=== PATIENT | female | born 1935 | race Hispanic/Latino ===

== ENCOUNTER 2018-01-07 06:29 | Inpatient (IN) | payer OTHER ==
[~2018-01-07] VITALS: Ht 162.6 cm; Wt 49.9 kg
[2018-01-07] VITALS (21 sets, daily range): BP systolic 109–148; BP diastolic 40–77
[2018-01-07 07:00] LABS: BASOPHILS % (AUTO) 0.5 % (0.0-5.0); EOSINOPHILS % (AUTO) 1.1 % (0.0-8.0); HEMATOCRIT 35.4 % (36-48); LYMPHOCYTES % (AUTO) 6.6 % (21.0-51.0); MEAN CORPUSCULAR HEMOGLOBIN 30.1 pg (27.0-33.0); MEAN CORPUSCULAR HGB CONC 33.9 g/dL (32.0-36.0); MEAN CORPUSCULAR VOLUME 88.6 fL (79-99); MONOCYTES % (AUTO) 7.3 % (3.0-13.0); NEUTROPHILS % (AUTO) 84.5 % (40.0-77.0); PLATELET COUNT (AUTO) 176 K/uL (130-400); RED CELL DISTRIBUTION WIDTH 15.1 % (11.0-15.5); WHITE BLOOD COUNT (AUTO) 12.1 K/uL (4.8-10.8)
[2018-01-07] MEDS ORDERED: ONDANSETRON HCL 4 MG/2 ML VIAL ONE (07:08)
[2018-01-07 07:15] LABS: INR 1.16 (0.85-1.15); PARTIAL THROMBOPLASTIN TIME 26.6 SEC (26.3-35.5); PROTHROMBIN TIME 12.1 SEC (9.6-11.6)
[2018-01-07 07:22] LABS: APPEARANCE,URINE CLEAR (CLEAR); BILIRUBIN,URINE LARGE (NEGATIVE); COLOR,URINE YELLOW (YELLOW); GLUCOSE, URINE (UA) NEGATIVE (NEGATIVE); KETONES,URINE NEGATIVE (NEGATIVE); LEUKOCYTE ESTERASE ,URINE NEGATIVE (NEGATIVE); NITRATE,URINE NEGATIVE (NEGATIVE); OCCULT BLOOD,URINE NEGATIVE (NEGATIVE); PH,URINE 5.5 (5.0-8.0); PROTEIN,URINE TRACE (NEGATIVE)
[2018-01-07 07:28] LABS: POTASSIUM 3.6 mmol/L (3.5-5.1)
[2018-01-07 07:29] LABS: ALBUMIN 2.7 g/dL (3.5-5.0); BILIRUBIN,TOTAL 12.3 mg/dL (0.2-1.0); TOTAL PROTEIN, SERUM 6.4 g/dL (6.0-8.3)
[2018-01-07 07:35] LABS: B-TYPE NATRIURETIC PEPTIDE 125 pg/mL (0-100)
[2018-01-07 07:38] LABS: BACTERIA,URINE Rare /HPF (None Seen); RBC,URINE 0-1 /HPF (0-1); SQUAMOUS EPITHELIAL CELL,UR Few /HPF (0-2)
[2018-01-07] MEDS ORDERED: SODIUM CHLORIDE 0.9% 500ML 500 ML IV ONE (07:42)
[2018-01-07] MEDS ORDERED: IOHEXOL-350 75 ML VIAL IV ONE (07:45)
[2018-01-07] MEDS ORDERED: ZOSYN 3.375GM+NS 50ML 50 ML IV ONE (08:32)
[2018-01-07] MEDS ORDERED: SODIUM CHLORIDE 0.9% 100 ML IV ONE (08:33)
[2018-01-07] MEDS: SODIUM CHLORIDE 0.9% 1000ML 1,000 ML IV SCH ×2 (08:36→21:21)
[2018-01-07] MEDS ORDERED: MORPHINE SULFATE 2 MG/ML 1ML SYG IV PRN (08:45)
[2018-01-07] MEDS ORDERED: LEVOFLOXACIN 500 MG/D5W 100 ML 100 ML IV SCH (08:45)
[2018-01-07] MEDS ORDERED: METRONIDAZOLE 500MG/100ML BAG 100 ML IV SCH (08:45)
[2018-01-07] MEDS: ENOXAPARIN SODIUM 30 MG/0.3 ML SQ SCH (09:00)
[2018-01-07] MEDS ORDERED: PANTOPRAZOLE 40 MG/VIAL IVP SCH (09:00)
[2018-01-07 09:02] LABS: BILIRUBIN,DIRECT 10.2 mg/dL (0.0-0.3)
[2018-01-07] MEDS ORDERED: PROPOFOL 10 MG/ML 20ML VIAL IV ONE (11:57)
[2018-01-07] MEDS ORDERED: SUCCINYLCHOLINE CHLORIDE 20 MG/ML 10 ML VIAL ONE (12:00)
[2018-01-07] MEDS ORDERED: IOHEXOL-350 50ML VIAL IV ONE (12:18)
[2018-01-07] MEDS: INDOMETHACIN 50 MG SUPP.RECT RC SCH ×5 (13:10→15:59)
[2018-01-07] MEDS: ZOSYN 3.375GM+NS 50ML 50 ML IV SCH (21:18)
[2018-01-08] VITALS: BP 131/51
[2018-01-08 04:00] VITALS: BP 121/43
[2018-01-08] MEDS: SODIUM CHLORIDE 0.9% 1000ML 1,000 ML IV SCH ×2 (04:08→14:36)
[2018-01-08] MEDS: ZOSYN 3.375GM+NS 50ML 50 ML IV SCH ×3 (04:17→21:30)
[2018-01-08 05:46] LABS: BASOPHILS % (AUTO) 0.8 % (0.0-5.0); EOSINOPHILS % (AUTO) 3.1 % (0.0-8.0); HEMATOCRIT 29.6 % (36-48); LYMPHOCYTES % (AUTO) 9.2 % (21.0-51.0); MEAN CORPUSCULAR HEMOGLOBIN 31.2 pg (27.0-33.0); MEAN CORPUSCULAR HGB CONC 35.2 g/dL (32.0-36.0); MEAN CORPUSCULAR VOLUME 88.6 fL (79-99); MONOCYTES % (AUTO) 5.5 % (3.0-13.0); NEUTROPHILS % (AUTO) 81.4 % (40.0-77.0); PLATELET COUNT (AUTO) 138 K/uL (130-400); RED BLOOD CELL COUNT(AUTO) 3.34 MIL/uL (4.00-5.50); RED CELL DISTRIBUTION WIDTH 15.1 % (11.0-15.5)
[2018-01-08 06:29] LABS: ALBUMIN 2.1 g/dL (3.5-5.0); BILIRUBIN,TOTAL 10.2 mg/dL (0.2-1.0); CREATININE 1.1 mg/dL (0.5-1.5); POTASSIUM 3.9 mmol/L (3.5-5.1); TOTAL PROTEIN, SERUM 5.4 g/dL (6.0-8.3)
[2018-01-08 08:00] VITALS: BP 125/52
[2018-01-08] MEDS: ENOXAPARIN SODIUM 30 MG/0.3 ML SQ SCH (09:00)
[2018-01-08] MEDS: FAMOTIDINE/PF 20 MG/2 ML VIAL IV SCH (10:16)
[2018-01-08 11:00] VITALS: BP 123/68
[2018-01-08 16:00] VITALS: BP 119/56
[2018-01-08 20:00] VITALS: BP 131/49
[2018-01-09] VITALS: BP 123/47
[2018-01-09] MEDS: SODIUM CHLORIDE 0.9% 1000ML 1,000 ML IV SCH (03:38)
[2018-01-09 04:00] VITALS: BP 148/51
[2018-01-09] MEDS: ZOSYN 3.375GM+NS 50ML 50 ML IV SCH (04:26)
[2018-01-09 04:32] VITALS: BP 150/77
[2018-01-09 05:00] LABS: HEMATOCRIT 28.7 % (36-48); MEAN CORPUSCULAR HEMOGLOBIN 30.6 pg (27.0-33.0); MEAN CORPUSCULAR HGB CONC 34.8 g/dL (32.0-36.0); MEAN CORPUSCULAR VOLUME 87.8 fL (79-99); PLATELET COUNT (AUTO) 205 K/uL (130-400); RED BLOOD CELL COUNT(AUTO) 3.27 MIL/uL (4.00-5.50); RED CELL DISTRIBUTION WIDTH 15.2 % (11.0-15.5)
[2018-01-09 05:33] LABS: ALBUMIN 2.2 g/dL (3.5-5.0); BILIRUBIN,DIRECT 4.9 mg/dL (0.0-0.3); BILIRUBIN,TOTAL 5.7 mg/dL (0.2-1.0); CREATININE 1.1 mg/dL (0.5-1.5); POTASSIUM 3.3 mmol/L (3.5-5.1); TOTAL PROTEIN, SERUM 5.4 g/dL (6.0-8.3)
[2018-01-09 07:30] VITALS: BP 119/43
[2018-01-09] MEDS: FAMOTIDINE/PF 20 MG/2 ML VIAL IV SCH (08:48)
[2018-01-09] MEDS: ENOXAPARIN SODIUM 30 MG/0.3 ML SQ SCH (08:53)
[2018-01-09 11:00] VITALS: BP 112/36
[2018-01-09] MEDS ORDERED: POTASSIUM CHLORIDE 20 MEQ ERTAB PO ONE (13:00)
== END 2018-01-09 13:15 | disposition home or self-care (01) | DRG 444 ==
LOC: EDH 06:29 → EDHIP 08:36 → 3DH 09:55
PROVIDERS: ADMIT Hospitalist; ATTEND Hospitalist
PROC: 0FC98ZZ Extirpation of Matter from Common Bile Duct, Via Natural or Artificial Opening Endoscopic (ICD-10-PCS; principal; 2018-01-07)
PROC: 0F798DZ Dilation of Common Bile Duct with Intraluminal Device, Via Natural or Artificial Opening Endoscopic (ICD-10-PCS; 2018-01-07)
PROC: 3E0234Z Introduction of Serum, Toxoid and Vaccine into Muscle, Percutaneous Approach (ICD-10-PCS; 2018-01-07)
DX: K80.70 Calculus of gallbladder and bile duct without cholecystitis without obstruction (principal); E43 Unspecified severe protein-calorie malnutrition; I81 Portal vein thrombosis; Z68.1 Body mass index [BMI] 19.9 or less, adult; N28.1 Cyst of kidney, acquired; E78.5 Hyperlipidemia, unspecified; F03.90 Unspecified dementia, unspecified severity, without behavioral disturbance, psychotic disturbance, mood disturbance, and anxiety; H91.90 Unspecified hearing loss, unspecified ear; N18.3 Chronic kidney disease, stage 3 (moderate); I12.9 Hypertensive chronic kidney disease with stage 1 through stage 4 chronic kidney disease, or unspecified chronic kidney disease; Z23 Encounter for immunization; Z83.3 Family history of diabetes mellitus; Z82.49 Family history of ischemic heart disease and other diseases of the circulatory system
CPT/HCPCS: 36415; 71045; 74330; 76700; 80048; 80053; 80076; 81001; 82105; 82140; 82248; 82270; 82550; 82977; 83880; 84484; 85025; 85027; 85610; 85730; 93005; 93306; C1769; C1773; C9113; G0008; J0330; J1650; J2405; J2543; J2704; J3490; J7030; J7040; Q2038; Q9967

== ENCOUNTER 2018-02-02 05:30 | Day surgery (SDC) | payer OTHER ==
[~2018-02-02] VITALS: Ht 162.6 cm; Wt 51.6 kg
[2018-02-02] VITALS (13 sets, daily range): BP systolic 145–171; BP diastolic 48–82
[2018-02-02] MEDS ORDERED: IOHEXOL-350 50ML VIAL IV ONE (06:01)
[2018-02-02] MEDS ORDERED: SODIUM CHLORIDE 0.9% 1000ML 1,000 ML IV ONE (06:16)
[2018-02-02] MEDS ORDERED: MEMA10TA20 PO (06:26)
[2018-02-02] MEDS ORDERED: LISI10TA7 PO (06:26)
[2018-02-02] MEDS ORDERED: ATOR10TA69 PO (06:26)
[2018-02-02] MEDS ORDERED: DONE10TA43 PO (06:26)
[2018-02-02] MEDS ORDERED: SERT50TA12 PO (06:26)
[2018-02-02] MEDS ORDERED: SUCCINYLCHOLINE CHLORIDE 20 MG/ML 10 ML VIAL ONE (06:27)
[2018-02-02] MEDS ORDERED: LIDOCAINE HCL 2% 20ML ONE (06:27)
[2018-02-02] MEDS ORDERED: PROPOFOL 10 MG/ML 20ML VIAL IV ONE (06:27)
[2018-02-02] MEDS ORDERED: INDOMETHACIN 50 MG SUPP.RECT RC SCH (07:45)
== END 2018-02-02 18:50 | disposition home or self-care (01) ==
LOC: ENDO 05:30 → DAH 05:30 → ENDO 18:50
PROVIDERS: ATTEND Internal Medicine
DX: Z46.59 Encounter for fitting and adjustment of other gastrointestinal appliance and device (principal); K80.50 Calculus of bile duct without cholangitis or cholecystitis without obstruction; I10 Essential (primary) hypertension; E78.5 Hyperlipidemia, unspecified; Z79.899 Other long term (current) drug therapy; G30.9 Alzheimer's disease, unspecified; F02.80 Dementia in other diseases classified elsewhere, unspecified severity, without behavioral disturbance, psychotic disturbance, mood disturbance, and anxiety
CPT/HCPCS: 43264; 43276; 74330; C1769; C1773; J0330; J2704; J3490; J7030; Q9967; 43274; 43275

== ENCOUNTER 2018-03-24 05:53 | Day surgery (SDC) | payer OTHER ==
[~2018-03-24] VITALS: Ht 162.6 cm; Wt 53.2 kg
[2018-03-24] VITALS (14 sets, daily range): BP systolic 115–162; BP diastolic 36–66
[~2018-03-24 05:53] MED LIST: ATOR10TA69 PO; DONE10TA43 PO; LISI10TA7 PO; MEMA10TA20 PO; SERT50TA12 PO; SODIUM CHLORIDE 0.9% 1000ML 1,000 ML IV ONE
[2018-03-24] MEDS ORDERED: IOHEXOL-350 50ML VIAL IV ONE (06:19)
[2018-03-24] MEDS ORDERED: PHENYLEPHRINE HCL 10 MG/ML 1ML VIAL IV ONE (06:50)
[2018-03-24] MEDS ORDERED: GLUCAGON 1MG KIT 1 MG ML ONE (06:59)
[2018-03-24] MEDS ORDERED: INDOMETHACIN 50 MG SUPP.RECT RC SCH (07:00)
[2018-03-24] MEDS ORDERED: PROPOFOL 10 MG/ML 20ML VIAL IV ONE (07:15)
[2018-03-24] MEDS ORDERED: PROPOFOL 1000 MG/100 ML 0 ML IV ONE (07:45)
[2018-03-24] MEDS ORDERED: SUCCINYLCHOLINE CHLORIDE 20 MG/ML 10 ML VIAL ONE (07:45)
[2018-03-24] MEDS ORDERED: LIDOCAINE HCL-MPF 2% 5ML VIAL ONE (07:45)
[2018-03-24] MEDS ORDERED: PROPOFOL 1000 MG/100 ML 100 ML IV ONE (07:47)
[2018-03-24] MEDS ORDERED: LEVOFLOXACIN 500 MG/D5W 100 ML 100 ML ONE (07:48)
== END 2018-03-24 09:20 | disposition home or self-care (01) ==
LOC: ENDO 05:53 → DAH 05:53 → ENDO 09:20
PROVIDERS: ATTEND Internal Medicine
DX: K80.50 Calculus of bile duct without cholangitis or cholecystitis without obstruction (principal); I10 Essential (primary) hypertension; E78.5 Hyperlipidemia, unspecified; Z79.899 Other long term (current) drug therapy; G30.9 Alzheimer's disease, unspecified; F02.80 Dementia in other diseases classified elsewhere, unspecified severity, without behavioral disturbance, psychotic disturbance, mood disturbance, and anxiety
CPT/HCPCS: 43265; 43273; 43275; 74330; 93005; C1769; C1773; J0330; J1610; J1956; J2370; J2704 ×2; J3490; J7030; Q9967; 43264; G9654

== ENCOUNTER 2019-10-07 09:59 | Inpatient (IN) | payer OTHER ==
[~2019-10-07] VITALS: Ht 160 cm; Wt 53.9 kg
[~2019-10-07 09:59] MED LIST changes: -MEMA10TA20 PO; +MEMA10TA55 PO; -SODIUM CHLORIDE 0.9% 1000ML 1,000 ML IV ONE
[2019-10-07 10:50] LABS: BASOPHILS % (AUTO) 0.1 % (0.0-5.0); EOSINOPHILS % (AUTO) 0.1 % (0.0-8.0); HEMATOCRIT 40.8 % (36-48); LYMPHOCYTES % (AUTO) 5.3 % (21.0-51.0); MEAN CORPUSCULAR HEMOGLOBIN 30.1 pg (27.0-33.0); MEAN CORPUSCULAR HGB CONC 34.3 g/dL (32.0-36.0); MEAN CORPUSCULAR VOLUME 87.7 fL (79-99); MONOCYTES % (AUTO) 4.2 % (3.0-13.0); NEUTROPHILS % (AUTO) 89.9 % (40.0-77.0); PLATELET COUNT (AUTO) 207 K/uL (130-400); RED BLOOD CELL COUNT(AUTO) 4.65 MIL/uL (4.00-5.50); RED CELL DISTRIBUTION WIDTH 12.9 % (11.0-15.5); WHITE BLOOD COUNT (AUTO) 13.7 K/uL (4.8-10.8)
[2019-10-07 11:14] LABS: CREATININE 0.9 mg/dL (0.5-1.5)
[2019-10-07 11:18] LABS: ALBUMIN 3.7 g/dL (3.5-5.0); BILIRUBIN,TOTAL 1.1 mg/dL (0.2-1.0); TOTAL PROTEIN, SERUM 7.1 g/dL (6.0-8.3)
[2019-10-07 11:22] LABS: POTASSIUM 2.9 mmol/L (3.5-5.1)
[2019-10-07 14:06] LABS: APPEARANCE,URINE Cloudy (CLEAR); BILIRUBIN,URINE Negative (NEGATIVE); COLOR,URINE Yellow (YELLOW); GLUCOSE, URINE (UA) Negative (NEGATIVE); KETONES,URINE 40 mg/dL (NEGATIVE); LEUKOCYTE ESTERASE ,URINE Moderate (NEGATIVE); NITRATE,URINE Negative (NEGATIVE); OCCULT BLOOD,URINE Negative (NEGATIVE); PH,URINE 5.5 (5.0-8.0); PROTEIN,URINE POS 1+ mg/dL (NEGATIVE)
[2019-10-07 14:22] LABS: BACTERIA,URINE Many /HPF (None Seen); RBC,URINE 0-1 /HPF (0-1)
[2019-10-07 14:23] LABS: MUCUS,URINE Few LPF (None Seen); SQUAMOUS EPITHELIAL CELL,UR 0-2 /HPF (0-2)
[2019-10-07] MEDS ORDERED: ZOSYN 3.375GM+NS 50ML 50 ML IV ONE (15:01)
[2019-10-07] MEDS ORDERED: POTASSIUM CHLORIDE 20 MEQ ERTAB PO ONE (15:04)
[2019-10-07] MEDS ORDERED: ACETAMINOPHEN 325 MG TAB PO PRN ×2 (16:00)
[2019-10-07] MEDS ORDERED: ONDANSETRON HCL 4 MG/2 ML VIAL IV PRN (16:00)
[2019-10-07] MEDS ORDERED: LACTULOSE 20 GM/30 ML UDCUP PO PRN (16:00)
[2019-10-07] MEDS ORDERED: MORPHINE SULFATE 2 MG/ML 1ML SYG IV PRN (16:00)
[2019-10-07] MEDS ORDERED: POTASSIUM CHLORIDE 10MEQ/100ML 100 ML IV PRN (16:15)
[2019-10-07] MEDS ORDERED: LIDOCAINE HCL-MPF 1% 2ML VIAL IV PRN (16:15)
[2019-10-07] MEDS ORDERED: ACETAMINOPHEN 325 MG TAB ONE (16:24)
[2019-10-07 18:00] VITALS: BP 97/38
[2019-10-07 19:43] VITALS: BP 99/48
[2019-10-07] MEDS: ZOSYN 3.375GM+NS 50ML 50 ML IV SCH (21:27)
[2019-10-07 23:55] VITALS: BP 90/41
[2019-10-08 04:00] VITALS: BP 96/43
[2019-10-08] MEDS: ZOSYN 3.375GM+NS 50ML 50 ML IV SCH ×3 (05:46→17:00)
[2019-10-08 07:31] VITALS: BP 104/54
[2019-10-08] MEDS: FAMOTIDINE/PF 20 MG/2 ML VIAL IV SCH (07:59)
[2019-10-08] MEDS: SODIUM CHLORIDE 0.9% 1000ML 1,000 ML IV SCH (08:02)
[2019-10-08 08:17] LABS: HEMATOCRIT 36.4 % (36-48); MEAN CORPUSCULAR HEMOGLOBIN 30.4 pg (27.0-33.0); MEAN CORPUSCULAR HGB CONC 34.3 g/dL (32.0-36.0); MEAN CORPUSCULAR VOLUME 88.6 fL (79-99); RED BLOOD CELL COUNT(AUTO) 4.11 MIL/uL (4.00-5.50); RED CELL DISTRIBUTION WIDTH 13.1 % (11.0-15.5); WHITE BLOOD COUNT (AUTO) 10.4 K/uL (4.8-10.8)
[2019-10-08 08:26] LABS: CREATININE 1.8 mg/dL (0.5-1.5); POTASSIUM 3.3 mmol/L (3.5-5.1)
[2019-10-08 10:42] VITALS: BP 109/51
[2019-10-08] MEDS ORDERED: RENAL DOSE IV SCH (11:45)
[2019-10-08 15:58] VITALS: BP 133/53
--- NOTE | 2019-10-08 17:29 | NUR ---
[facility] CM spoke to pt's daughter Maddison Molina [phone]. discussed dc plans. Pt is assists with ADL's prior to admission, lives at home with daughter. Denies any equipments/services. Feels safe to go bck home, daughter able to assist with transportation and needs as necessary. DC plant o home once stable. CM to cont to follow up. Verfied Phys Addr: [id number] [place], [place] [id number] Addendum: 10/08/19 at 1733 by MITCHEL TURCIOS LVN CM Amended: Links added.
[2019-10-08 20:07] VITALS: BP 126/51
[2019-10-09 01:08] VITALS: BP 121/55
[2019-10-09] MEDS: ZOSYN 3.375GM+NS 50ML 50 ML IV SCH ×2 (03:10→17:15)
[2019-10-09] MEDS: SODIUM CHLORIDE 0.9% 1000ML 1,000 ML IV SCH ×2 (03:16→07:49)
[2019-10-09] MEDS: HALOPERIDOL LACTATE 5 MG/ML VIAL IM SCH (03:53)
[2019-10-09 04:20] LABS: HEMATOCRIT 37.6 % (36-48); MEAN CORPUSCULAR HEMOGLOBIN 30.6 pg (27.0-33.0); MEAN CORPUSCULAR HGB CONC 34.6 g/dL (32.0-36.0); MEAN CORPUSCULAR VOLUME 88.5 fL (79-99); RED BLOOD CELL COUNT(AUTO) 4.25 MIL/uL (4.00-5.50); RED CELL DISTRIBUTION WIDTH 13.2 % (11.0-15.5)
--- NOTE | 2019-10-09 04:31 | NUR ---
patient confused and forgetful. she took off 4 iv catheters. i spoke with her daughter, who was asleep all night. i told her daughter that she needs to watch her mother because she removes her iv catheters and mittens. she verbalizes understanding, but continue to go back to sleep.
[2019-10-09 04:34] VITALS: BP 165/61
[2019-10-09 04:36] LABS: CREATININE 1.2 mg/dL (0.5-1.5); POTASSIUM 3.1 mmol/L (3.5-5.1)
[2019-10-09] MEDS ORDERED: POTASSIUM CHLORIDE 10% ELIXIR 20 MEQ/15 ML UDCUP PO PRN (04:45)
[2019-10-09] MEDS ORDERED: POTASSIUM CHLORIDE 20 MEQ ERTAB PO PRN (04:45)
[2019-10-09] MEDS ORDERED: LIDOCAINE HCL-MPF 1% 2ML VIAL IV PRN (04:45)
[2019-10-09] MEDS ORDERED: POTASSIUM CHLORIDE 20MEQ/100ML 100 ML IV PRN (04:45)
[2019-10-09] MEDS ORDERED: POTASSIUM CHLORIDE 10% ELIXIR 20 MEQ/15 ML UDCUP ONE (05:30)
[2019-10-09 07:38] VITALS: BP 121/55
--- NOTE | 2019-10-09 09:00 | NUR ---
DIET ADVANCED TO FULL LIQUIDS. WILL CHANGE IVF TO COVER POTASSIUM PER Elen GÓMEZ NP
[2019-10-09] MEDS: FAMOTIDINE/PF 20 MG/2 ML VIAL IV SCH (09:12)
[2019-10-09 11:05] VITALS: BP 127/58
[2019-10-09] MEDS ORDERED: POTASSIUM CHLORIDE 20 MEQ ERTAB PO SCH (11:30)
--- NOTE | 2019-10-09 13:00 | NUR ---
DR. KAUR IN TO SEE PT. PLAN IS FOR SURG. ON FRIDAY.
[2019-10-09 15:52] VITALS: BP 157/79
--- NOTE | 2019-10-09 16:00 | NUR ---
DR. CRUZ RETURNED CALL, ORDERED LBS FOR AM AND WANTS TO BE CALLED WITH RESULTS, DOES NOT THINK PT. NEEDS ERCP BUT WILL DECIDE IN AM .
--- NOTE | 2019-10-09 16:25 | NUR ---
DR Mary CRUZ RETURNED CALL, ORDERS GIVEN AND ENTERED, CMP TO BE DONE IN AM AND RESULTS WILL BE CALLED IN TO HIM, WILL THEN DECIDE IF PT. NEEDS ERCP CONSULT REQUESTED FOR THAT PURPOSE.
[2019-10-09] MEDS ORDERED: NS-20 MEQ KCL 1000ML 1,000 ML IV SCH (17:15)
--- NOTE | 2019-10-09 20:06 | NUR ---
STILL PENDING A CALL BACK FROM DR. MOORE TO FOR CARDIAC SURGICAL CLEARANCE.
--- NOTE | 2019-10-09 21:09 | NUR ---
spoke with doctor cavazos about patient's cardiac consult and cardiac clearance. he is aware
[2019-10-09 21:35] VITALS: BP 143/70
[2019-10-10 00:33] VITALS: BP 138/57
[2019-10-10] MEDS: HALOPERIDOL LACTATE 5 MG/ML VIAL IM SCH (00:33)
[2019-10-10 03:52] VITALS: BP 119/51
[2019-10-10] MEDS: ZOSYN 3.375GM+NS 50ML 50 ML IV SCH ×2 (04:06→16:40)
--- NOTE | 2019-10-10 04:10 | NUR ---
patient alert and oriented to person. she was able to be calm and sleep most of the night. no issues with her.
[2019-10-10 06:23] LABS: ALBUMIN 3.1 g/dL (3.5-5.0); BILIRUBIN,TOTAL 0.7 mg/dL (0.2-1.0); CREATININE 0.9 mg/dL (0.5-1.5); POTASSIUM 4.3 mmol/L (3.5-5.1); TOTAL PROTEIN, SERUM 6.1 g/dL (6.0-8.3)
[2019-10-10 07:33] LABS: BASOPHILS % (AUTO) 0.6 % (0.0-5.0); EOSINOPHILS % (AUTO) 2.1 % (0.0-8.0); HEMATOCRIT 34.4 % (36-48); LYMPHOCYTES % (AUTO) 14.5 % (21.0-51.0); MEAN CORPUSCULAR HEMOGLOBIN 30.5 pg (27.0-33.0); MEAN CORPUSCULAR HGB CONC 34.3 g/dL (32.0-36.0); MEAN CORPUSCULAR VOLUME 88.9 fL (79-99); MONOCYTES % (AUTO) 7.1 % (3.0-13.0); NEUTROPHILS % (AUTO) 75.4 % (40.0-77.0); PLATELET COUNT (AUTO) 176 K/uL (130-400); RED BLOOD CELL COUNT(AUTO) 3.87 MIL/uL (4.00-5.50); RED CELL DISTRIBUTION WIDTH 13.1 % (11.0-15.5); WHITE BLOOD COUNT (AUTO) 6.6 K/uL (4.8-10.8)
[2019-10-10 08:03] VITALS: BP 153/68
[2019-10-10] MEDS: FAMOTIDINE/PF 20 MG/2 ML VIAL IV SCH (10:04)
[2019-10-10 11:18] VITALS: BP 135/60
--- NOTE | 2019-10-10 12:45 | NUR ---
DR. KAUR ROUNDED, REPORTED PATIENT WILL NEED A LEXISCAN FOR TOMORROW FOR CARDIAC CLEARANCE PER DR. MOORE. DR. KAUR IN AGREEMENT, STATED TO NOTIFY HIM WHEN PATIENT IS CLEAR TO SCHEDULE SURGERY.
--- NOTE | 2019-10-10 13:01 | NUR ---
REPORTED CMP RESULTS TO DR. CRUZ, NO INTERVENTION AT THIS TIME. WILL SIGN OFF FOR NOW.
[2019-10-10 16:02] VITALS: BP 157/69
[2019-10-10 20:35] VITALS: BP 153/78
[2019-10-11 00:54] VITALS: BP 151/71
[2019-10-11] MEDS: ZOSYN 3.375GM+NS 50ML 50 ML IV SCH ×2 (03:12→17:22)
[2019-10-11 04:12] VITALS: BP 129/62
[2019-10-11 06:39] LABS: BASOPHILS % (AUTO) 0.4 % (0.0-5.0); HEMATOCRIT 35.6 % (36-48); MEAN CORPUSCULAR HEMOGLOBIN 30.2 pg (27.0-33.0); MEAN CORPUSCULAR HGB CONC 33.7 g/dL (32.0-36.0); MEAN CORPUSCULAR VOLUME 89.4 fL (79-99); MONOCYTES % (AUTO) 7.6 % (3.0-13.0); NEUTROPHILS % (AUTO) 66.6 % (40.0-77.0); PLATELET COUNT (AUTO) 180 K/uL (130-400); RED BLOOD CELL COUNT(AUTO) 3.98 MIL/uL (4.00-5.50); RED CELL DISTRIBUTION WIDTH 12.9 % (11.0-15.5)
[2019-10-11 07:14] LABS: BILIRUBIN,TOTAL 0.6 mg/dL (0.2-1.0); CREATININE 0.9 mg/dL (0.5-1.5); POTASSIUM 3.6 mmol/L (3.5-5.1); TOTAL PROTEIN, SERUM 6.4 g/dL (6.0-8.3)
[2019-10-11 07:28] VITALS: BP 135/58
[2019-10-11] MEDS ORDERED: REGADENOSON 0.4 MG/5 ML PF SYG IVP SCH (07:45)
[2019-10-11] MEDS: FAMOTIDINE/PF 20 MG/2 ML VIAL IV SCH (09:00)
[2019-10-11 10:53] VITALS: BP 169/63
[2019-10-11 16:06] VITALS: BP 162/68
--- NOTE | 2019-10-11 16:56 | NUR ---
CARDICA CLEARANCE PER DR. VILLEDA PT IS CLEARED FROM CARDIAC OR TO DO PROCEDURE.
[2019-10-11 20:00] VITALS: BP 141/57
[2019-10-12] VITALS (29 sets, daily range): BP systolic 126–189; BP diastolic 47–84
[2019-10-12] MEDS: ZOSYN 3.375GM+NS 50ML 50 ML IV SCH ×2 (04:19→17:19)
--- NOTE | 2019-10-12 04:37 | NUR ---
Rounds Patient resting in bed with OU closed. Easily aroused. No complaints of pain voiced at this time. Vitals stable. Afebrile. Resp even and unlabored. No SOB noted. On room air. up with assist. Daughter at bedside to assist with ADLs. Pending Lap cholecystectomy, possible open this am. No signs of distress noted. Call light within reach. Will continue to be observed. Addendum: 10/12/19 at 7914 by GISSELL CRUZ RN RN Amended: Links added.
[2019-10-12 04:42] LABS: BASOPHILS % (AUTO) 0.9 % (0.0-5.0); EOSINOPHILS % (AUTO) 5.2 % (0.0-8.0); HEMATOCRIT 36.2 % (36-48); LYMPHOCYTES % (AUTO) 19.8 % (21.0-51.0); MEAN CORPUSCULAR HGB CONC 33.4 g/dL (32.0-36.0); MEAN CORPUSCULAR VOLUME 89.8 fL (79-99); MONOCYTES % (AUTO) 9.1 % (3.0-13.0); NEUTROPHILS % (AUTO) 64.6 % (40.0-77.0); PLATELET COUNT (AUTO) 192 K/uL (130-400); RED BLOOD CELL COUNT(AUTO) 4.03 MIL/uL (4.00-5.50); RED CELL DISTRIBUTION WIDTH 12.8 % (11.0-15.5); WHITE BLOOD COUNT (AUTO) 5.4 K/uL (4.8-10.8)
[2019-10-12 05:22] LABS: ALBUMIN 3.1 g/dL (3.5-5.0); BILIRUBIN,TOTAL 0.5 mg/dL (0.2-1.0); CREATININE 0.9 mg/dL (0.5-1.5); POTASSIUM 3.6 mmol/L (3.5-5.1); TOTAL PROTEIN, SERUM 6.5 g/dL (6.0-8.3)
[2019-10-12] MEDS ORDERED: BUPIVACAINE/PF 0.5% 30ML VIAL ONE (07:26)
[2019-10-12] MEDS ORDERED: LIDOCAINE PF 2% 5ML ABBOJECT ONE (08:07)
[2019-10-12] MEDS ORDERED: SUCCINYLCHOLINE CHLORIDE 20 MG/ML 10 ML VIAL ONE (08:07)
[2019-10-12] MEDS ORDERED: ROCURONIUM 10MG/1ML SYR 10 MG/ML ML ONE (08:08)
[2019-10-12] MEDS ORDERED: FENTANYL CITRATE PF 50 MCG/1 ML 2ML VIAL ONE (08:08)
[2019-10-12] MEDS ORDERED: PROPOFOL 10 MG/ML 20ML VIAL IV ONE (08:08)
[2019-10-12] MEDS ORDERED: LABETALOL 20 MG/4 ML DISP.SYRIN IV PRN (08:15)
[2019-10-12] MEDS ORDERED: EPHEDRINE SULFATE 50 MG/ML AMPULE ONE (08:49)
[2019-10-12] MEDS ORDERED: GLYCOPYRROLATE 1 MG/5 ML SYRINGE ONE (09:08)
[2019-10-12] MEDS ORDERED: NEOSTIGMINE 5MG/5ML SYR IV ONE (09:08)
[2019-10-12] MEDS ORDERED: DEXAMETHASONE SOD PHOSPHATE 4 MG/ML 5ML VIAL ONE (09:32)
[2019-10-12] MEDS ORDERED: RACEPINEPHRINE HCL 2.25% 0.5 ML NEB SOLN ONE (09:51)
[2019-10-12] MEDS ORDERED: IPRATROPIUM/ALBUTEROL SULFATE 3 ML SOLUTION IH ONE (09:52)
[2019-10-12] MEDS: FAMOTIDINE/PF 20 MG/2 ML VIAL IV SCH (10:50)
--- NOTE | 2019-10-12 23:27 | NUR ---
ROUNDS PATIENT AWAKE AND ALERT WATCHING TV IN BED. NO COMPLAINTS OF PAIN VOICED AT THIS TIME. VITALS STABLE. AFEBRILE. RESP EVEN AND UNLABORED. NO SOB NOTED. ON ROOM AIR. USING IS. DAUGHTER AT BEDSIDE TO ASSIST WITH ADLS. UP WITH ASSIST. ABD SOFT AND NONTENDER. AUDIBLE BOWEL SOUNDS X 4 QUADS. PER DAUGHTER, PATIENT HAD A BM TONIGHT. NO SIGNS OF DISTRESS NOTED, HOB ELEVATED. CALL LIGHT WITHIN REACH. WILL CONTINUE TO BE OBSERVED. Addendum: 10/12/19 at 2332 by GISSELL CRUZ RN RN Amended: Links added.
[2019-10-13 03:54] VITALS: BP 132/66
[2019-10-13] MEDS: ZOSYN 3.375GM+NS 50ML 50 ML IV SCH (04:14)
[2019-10-13 05:39] LABS: BASOPHILS % (AUTO) 0.1 % (0.0-5.0); EOSINOPHILS % (AUTO) 0.1 % (0.0-8.0); HEMATOCRIT 31.7 % (36-48); LYMPHOCYTES % (AUTO) 9.4 % (21.0-51.0); MEAN CORPUSCULAR HEMOGLOBIN 29.9 pg (27.0-33.0); MEAN CORPUSCULAR HGB CONC 34.1 g/dL (32.0-36.0); MEAN CORPUSCULAR VOLUME 87.8 fL (79-99); MONOCYTES % (AUTO) 6.9 % (3.0-13.0); NEUTROPHILS % (AUTO) 83.1 % (40.0-77.0); PLATELET COUNT (AUTO) 267 K/uL (130-400); RED BLOOD CELL COUNT(AUTO) 3.61 MIL/uL (4.00-5.50); RED CELL DISTRIBUTION WIDTH 12.9 % (11.0-15.5); WHITE BLOOD COUNT (AUTO) 10.4 K/uL (4.8-10.8)
[2019-10-13 07:18] LABS: BILIRUBIN,TOTAL 0.5 mg/dL (0.2-1.0); CREATININE 0.8 mg/dL (0.5-1.5); POTASSIUM 3.3 mmol/L (3.5-5.1); TOTAL PROTEIN, SERUM 6.2 g/dL (6.0-8.3)
[2019-10-13 08:23] VITALS: BP 138/56
[2019-10-13] MEDS: FAMOTIDINE/PF 20 MG/2 ML VIAL IV SCH (09:50)
[2019-10-13] MEDS ORDERED: METR500T PO (10:34)
[2019-10-13] MEDS ORDERED: CEPH-578 PO (10:34)
[2019-10-13 11:27] VITALS: BP 125/51
--- NOTE | 2019-10-13 12:00 | NUR ---
DISCHARGE PATIENT/DAUGHTER GIVEN DISCHARGE INSTRUCTIONS VIA TEACH BACK. 22G PIV TO RW DISCONTINUED, TIP INTACT. PATIENT TO FOLLOW UP WITH DR. KAUR ON 10/28/19 AT 1430. E-RX SENT TO [facility] FOR KEFLEX 500MG 1 CAP PO TID X 5 DAYS, FLAGYL 500MG 1 TAB PO TID X 5 DAYS AND TYLENOL #3 1 TAB PO 6Q/PRN. PATIENT STABLE AT THIS TIME, DAUGHTER AT BEDSIDE. PATIENT WHEELED TO [facility] FOR DISCHARGE.
== END 2019-10-13 12:00 | disposition home or self-care (01) | DRG 418 ==
LOC: EDH 09:59 → EDHIP 15:49 → 3DH 18:00
PROVIDERS: ADMIT Internal Medicine; ATTEND Internal Medicine
PROC: 0FT44ZZ Resection of Gallbladder, Percutaneous Endoscopic Approach (ICD-10-PCS; principal; 2019-10-12 08:47)
DX: K80.12 Calculus of gallbladder with acute and chronic cholecystitis without obstruction (principal); N17.9 Acute kidney failure, unspecified; N39.0 Urinary tract infection, site not specified; E87.6 Hypokalemia; B96.20 Unspecified Escherichia coli [E. coli] as the cause of diseases classified elsewhere; F03.90 Unspecified dementia, unspecified severity, without behavioral disturbance, psychotic disturbance, mood disturbance, and anxiety; I10 Essential (primary) hypertension; J44.9 Chronic obstructive pulmonary disease, unspecified; E78.5 Hyperlipidemia, unspecified; N28.1 Cyst of kidney, acquired; K82.8 Other specified diseases of gallbladder; N27.0 Small kidney, unilateral; Z90.49 Acquired absence of other specified parts of digestive tract; Z83.3 Family history of diabetes mellitus; Z82.49 Family history of ischemic heart disease and other diseases of the circulatory system; Z83.2 Family history of diseases of the blood and blood-forming organs and certain disorders involving the immune mechanism
CPT/HCPCS: 36415; 71045; 74181; 76705; 78452; 80048; 80053; 81001; 82150; 82948; 83690; 84132; 84484; 85025; 85027; 87040; 87077; 87088; 87186; 88304; 93005; 93017; 94640; 96374; A9500; G0378; J0330; J1100; J1630; J2001; J2543; J2704; J2710; J2785; J3010; J3480; J3490; J7030